=== PATIENT | female | born 1975 | race Hispanic/Latino ===

== ENCOUNTER 2016-06-12 12:32 | Emergency (ER) | payer OTHER ==
[~2016-06-12] VITALS: Ht 152.4 cm; Wt 77.3 kg
[~2016-06-12 12:32] MED LIST: DICL100G8 TOPICAL; HYDR-3740 PO; IBUP-1827 PO; VIT1TABL83 PO
[2016-06-12 12:36] VITALS: BP 152/96; PULSE 65; RESP 20; O2SAT 97
[2016-06-23] MEDS ORDERED: HYDR-4003 PO (14:35)
== END 2016-06-12 15:13 | disposition left against medical advice (07) ==
LOC: SED 12:32
DX: T74.21XA Adult sexual abuse, confirmed, initial encounter (principal); Z53.21 Procedure and treatment not carried out due to patient leaving prior to being seen by health care provider

== ENCOUNTER 2016-06-27 11:09 | Day surgery (SDC) | payer OTHER ==
[~2016-06-27] VITALS: Ht 152.4 cm; Wt 77.7 kg
[2016-06-27] VITALS (9 sets, daily range): BP systolic 118–131; BP diastolic 54–76; PULSE 58–70; RESP 14–17; O2SAT 96–100
[~2016-06-27 11:09] MED LIST changes: -DICL100G8 TOPICAL; -HYDR-3740 PO; +HYDR-4003 PO; -IBUP-1827 PO; +Lactated Ringer's 1,000 ML IV SCH; -VIT1TABL83 PO
[2016-06-27] MEDS ORDERED: Ondansetron 2 mg/mL 2 mL Inj ONE (11:10)
[2016-06-27] MEDS ORDERED: Dexamethasone 4 mg/mL Inj ONE (11:10)
[2016-06-27] MEDS ORDERED: Propofol 10,000 mCg/mL 20 mL Inj ONE (11:10)
[2016-06-27] MEDS ORDERED: fentaNYL-PF 50 mCg/mL 2 mL Inj ONE (11:10)
[2016-06-27] MEDS ORDERED: Lactated Ringer's 1,000 ML IV ONE ×2 (12:11→16:00)
[2016-06-27] MEDS ORDERED: Lactated Ringer's 1,000 ML IV SCH (12:43)
[2016-06-27] MEDS ORDERED: Lactated Ringer's 500 ML IV PRN (12:43)
--- NOTE | 2016-06-27 12:43 | PCM.HPANE ---
Patient Data Surgeon Admitting Provider: Attending Provider:Jonnathan Medina DO Primary Care Physician:Leena Watkins PA-C Other Provider:Nolan Gonzalez Anesthesia Reason for Visit Left Knee Derrangment Of Meniscus Ht/WT & BMI Height (Feet): 5 Height (Inches): 0.00 Weight (Kilograms): 77.700 Body Mass Index 33.00 Allergies Coded Allergies: buspirone (Verified Allergy, Severe, N/V SHOCKING SENSATIONS, 02/16/09) codeine (Verified Allergy, Severe, N/V, 02/16/09) Past Anesthesia History Anesthesia History: Positive for:: Anesthesia Reactions (triggers anxiety when waking up, panic attack), Denies:: Abnormal Airway, Difficult Intubation, Fam Anesthesia Reaction Diabetes History Hx Diabetes?: No MRSA MRSA: No Medications Hypertension Medication: No Home Meds Incl Beta Arnold: No Reported Medications Hydrocodone-Acetaminophen 5-325 mg 1 Each Tablet1-2 Tablet PO Q8H PRN For Pain Ref 0 06/23/16 Discontinued Reported Medications Diclofenac Gel (Voltaren Gel)100 Gm Tube1 Applic TOPICAL QID PRN For Pain #1 TUBE 11/09/15 Ibuprofen 600 Mg [id number] Mg PO TID PRN For Pain Ref 0 11/09/15 Vit B Comp/C/FA/Iron/Vit E (Vitamin B Complex Tablet)1 Each Tablet1 Each PO DAILY 11/09/15 Hydrocodone-Acetaminophen 10-325 mg 1 Each Tablet0.5-1 Tablet PO Q6H PRN For Pain Ref 0 11/09/15 History History of ENT Problems?: No HEENT History: Denies:: Abnormal Airway Cataracts Difficult Intubation Dysphagia Glaucoma Hearing Problem Sinus Problem TMJ Other HEENT Pertinent History: couple of fillings have fallen out, couple of dental chips Hx of Heart Problems?: No Cardiovascular History: Denies:: AICD Abdominal Aortic Aneurism Cardiac Surgery Chest Pain Congestive Heart Failure Edema Heart Murmur Hypertension Irregular Heartbeat Pacemaker Hx of Respiratory Problem?: No Respiratory History: Denies:: Asthma COPD Emphysema Oxygen Administration Pneumonia Tuberculosis Use of C-PAP Machine Hx Neurologic Problems?: Yes Neurological History: Positive for:: Headaches (couple of times monthly, ) Denies:: Alzheimer's Disease CVA Dementia Multiple Sclerosis Parkinson's Disease Seizures Hx of GI Problems?: Yes Gastrointestinal History: Positive for:: Gall Bladder Disease (hx of pancreatitis- intermittent) Heartburn Denies:: Cirrhosis Gastrointestinal Bleeding Hepatitis Hiatal Hernia Rectal Bleeding Hx of Problems?: No Genitourinary History: Denies:: Kidney Stones Urinary Tract Infection Female Hx: Positive for:: Endometriosis Denies:: Currently (hysterectomy) Problems with Breasts? Skin History: Denies:: History Skin Disorders? Pressure Ulcers Hx Musculoskeletal Problems?: Yes Musculoskeletal History: Positive for:: Back Injury (chronic back pain - avg 4 -5/10 L4-5) Fibromyalgia (on the scale of having it, no firmly diagnosed) Musculoskeletal Trauma (left knee arthroscopy current admission problem) Osteoarthritis (spinal) Denies:: Joint Replacement Systemic Lupus Hx of Psycho/Social Problems?: Yes Psycho Social History: Positive for:: Anxiety (on no meds- using physical activity for tx ) Hx Depression Denies:: Bipolar Disorder Hx Surgeries?: Yes (knee, partial hyst, rt ankle ORIF, left tibial plateau) Hx Any Other Health Problems?: Yes Other History: Denies:: Cancer Endocrine Disease Thyroid Disease History Blood Transfusions: Positive for:: Accept Blood Products? Denies:: Blood Transfusions Hx Diabetes: No Hx Alcohol Use: NoHx Substance Use: No Smoking Status: Former Smoker Have You Smoked inLast 12 mo: No Stop/Bang S-Snoring: Do You Snore Loudly: No T-Tired: feel tired, fatigued: No O-Obsered: Observed not breath: No P-Blood Pressure: treated: No B- Body Mass Index > 35 kg/m2: No A- Age over 50: No N- Neck Large Circumference: No G- Gender Male: No FENG Total Score: 0 Risk Assessment Category Category 1A: Patient has history of documented sleep apnea, and HAS NOT received any narcotic, sedative or anesthesia administration during this stay. Category 1B: Patient has history of documented sleep apnea, and HAS received any narcotic , sedative or anesthesia administration during this stay Category 2: Patient has SUSPECTED Obstructive Sleep Apnea, and HAS received any narcotic , sedative or anesthesia administration during this stay. Category 3: Patient has SUSPECTED Obstructive Sleep Apnea and HAS NOT received narcotic, sedative or anesthesia administration during this stay. Category 4: Outpatient in Procedural Areas with known sleep apnea or who screen positive for High Risk via the STOP/BANG questionnaire. Exam Exam Vital Signs Vital Signs Date Time Temp Pulse Resp B/P Pulse Ox O2 Delivery O2 Flow Rate FiO2 06/27/16 12:05 36.6 58 16 123/76 100 Room Air General Appearance: Alert, Oriented X3, Cooperative HEENT/AIRWAY: MP 2 Lungs: Normal Air Movement Heart: Exam Unremarkable Meds/Labs/Diagnostics Admission Meds Current Medications Lactated Ringer's (Lr) 1,000 ml @ ud STK-MED ONCE IV Last administered on t 12:11; Start 06/27/16 at 12:11; Stop 06/27/16 at 12:12; Status DC Plan Impression Patient chart reviewed, patient interviewed and anesthestic plan with risks, benefits, and alternatives discussed, and informed consent obtained. NPO Status: confirmed before mn ASA Physical Status: ASA2 Mod Systemic Disease Anesthetic Plan: GA Bene/Risks/Altern/Consents: Yes HP Complete Prior to Induction: Yes Jagjit Gramajo MD Jun 27, 2016 12:43
[2016-06-27] MEDS ORDERED: EPHEDrine Sulfate 50 mg/mL Inj IVPUSH PRN (12:45)
[2016-06-27] MEDS ORDERED: Dexamethasone 4 mg/mL Inj IVPUSH PRN (12:45)
[2016-06-27] MEDS ORDERED: MetoCLOpramide 5 mg/mL 2 mL Inj IVPUSH PRN (12:45)
[2016-06-27] MEDS ORDERED: Phenylephrine 10,000 mCg/mL Inj IVPUSH PRN (12:45)
[2016-06-27] MEDS ORDERED: fentaNYL-PF 50 mCg/mL 2 mL Inj IVPUSH PRN (12:45)
[2016-06-27] MEDS ORDERED: Lidocaine 2%-Epi 1:100,000 20 mL Inj INFILTRATE ONE (13:47)
[2016-06-27] MEDS ORDERED: Ropivacaine-PF 0.5% 30 mL Inj INFILTRATE ONE (13:47)
--- NOTE | 2016-06-27 14:22 | PCM.ANEP1 ---
Post Anesthesia Phase 1 PACU Phase 1 Assessment Vital Signs Vital Signs Date Time Temp Pulse Resp B/P Pulse Ox O2 Delivery O2 Flow Rate FiO2 06/27/16 12:05 36.6 58 16 123/76 100 Room Air Anesthetic Administered: GA Level of Alertness: Awake, talking ASTORGA's with Equal Strength: Yes Pain: No Nausea or Vomiting: No Oxygen Delivery: Room Air Lungs: Normal Air Movement Dermatome Level: Full Sensation Jagjit Gramajo MD Jun 27, 2016 14:22
--- NOTE | 2016-06-27 14:23 | PCM.ANEP2 ---
Post Anesthesia Evaluation ASA/CMS Post Anesthesia VS in Patient's Normal Range?: Yes Resp Stable; Airway Patent?: Yes CV Function & Hydration Stable: Yes Mental Status Recovered?: Yes Pain control Satisfactory?: Yes N/V Control Satisfactory?: Yes Jagjit Gramajo MD Jun 27, 2016 14:23
[2016-06-27] MEDS ORDERED: oxyCODONE-Acetamin 5-325 mg Tablet PO PRN (14:30)
--- NOTE | 2016-06-27 14:54 | OP ---
[address] [address] OPERATIVE REPORT PATIENT: MOON SALAMANCA : 1975 MR#: [id number] ADMIT: 06/27/2016 JOB ID: [id number] DATE OF SURGERY: 06/27/2016 PREOPERATIVE DIAGNOSIS(ES): Left knee torn medial meniscus. POSTOPERATIVE DIAGNOSIS(ES): Left knee torn medial meniscus with fibrotic fat pad and partial anterior cruciate ligament tear. PROCEDURE: Left knee video arthroscopy with partial medial meniscectomy, resection of fibrotic anterior fat pad, partial medial meniscectomy. SURGEON: Jonnathan Medina DO. ANESTHESIA: General. INDICATIONS: The patient is a 41-year-old female with left knee pain, which began with a new injury on May 20, 2016. She was having a difficult time with her knee catching and locking, and a feeling of instability. We had an MRI performed which demonstrated a torn medial meniscus, and she wished to proceed with a knee scope with partial medial meniscectomy. We discussed the risks, benefits, and possible complications of surgery. All questions were answered. She wished to proceed. PROCEDURE IN DETAIL: The patient was brought to the operating room. She was given a general anesthetic and the left lower extremity was sterilely prepped and draped. An incision was made over the anterolateral knee at the level of the joint line. A blunt trocar was introduced into the knee and inspection was undertaken. She was noted to have quite a bit of scarring over the anterior fat pad and anterior knee below the patella. She was also noted to have a tear in the midbody and posterior horn medial meniscus. This was resected back to a stable base with a combination of biters and kerwin. Her ACL was inspected and found to have some laxity, although it did tighten I would say consistent with a partial-thickness ACL tear. She had cartilaginous flap over the anterior ACL which was resected. Her lateral compartment was in good condition without meniscus tear. The remainder of the fibrotic fat pad was resected, and the portals were closed with interrupted nylon suture. Naropin was added as an adjunct local anesthetic. Sterile dressings were applied. Patient tolerated the procedure well. Blood loss was minimal. POSTOPERATIVE PROTOCOL: I will have the patient weight bear to tolerance using crutches as needed, ice and elevate, and follow up in the clinic in two weeks. I would like her to begin working with Physical Therapy, as she has a flexion contracture, which was evident under anesthesia, and also, would like her to use her ACL brace to prevent repeat instability. She was given a prescription for Percocet for pain, as well as Xanax for anxiety.
[2016-06-27] MEDS: Ondansetron 2 mg/mL 2 mL Inj IVPUSH PRN (14:57)
== END 2016-06-27 23:59 | disposition home or self-care (01) ==
LOC: SAS 11:09
PROVIDERS: ATTEND Orthopaedic Surgery
DX: M23.322 Other meniscus derangements, posterior horn of medial meniscus, left knee (principal); M23.52 Chronic instability of knee, left knee; R51 Headache; R12 Heartburn; F41.9 Anxiety disorder, unspecified; Z87.891 Personal history of nicotine dependence; Z79.899 Other long term (current) drug therapy